=== PATIENT | male | born 1980 | race Caucasian/White ===

== ENCOUNTER 2017-06-22 05:47 | Day surgery (SDC) | payer BC, OTHER ==
[~2017-06-22] VITALS: Ht 185.4 cm; Wt 90.3 kg
--- NOTE | ~2017-06-22 | O ---
[address] [address] OPERATIVE REPORT Name: BETTY JENSEN Amy Room #: DEP [facility].#: [id number] Admission: 06/22/17 Attend Phys: Tomas Quezada MD Discharge: 06/22/17 Date of : 76 Report #: [id number] THIS REPORT FOR: //name// CC: Mike Quezada DATE OF SERVICE: 06/22/2017 SERVICE: Orthopedics. FACILITY: [facility] SURGEON: Tomas Quezada M.D. SHIP WASHER: None. PREOPERATIVE DIAGNOSES: 1. Right hip pain. 2. Right hip femoroacetabular impingement. 3. Right hip labral tear. 4. Right hip chondromalacia of the acetabulum. 5. Right hip subspine, extraarticular impingement. POSTOPERATIVE DIAGNOSES: 1. Right hip pain. 2. Right hip femoroacetabular impingement. 3. Right hip labral tear. 4. Right hip chondromalacia of the acetabulum. 5. Right hip subspine, extraarticular impingement. PROCEDURES: 1. Right hip arthroscopic subspinous acetabuloplasty. 2. Right hip arthroscopic labral repair. 3. Right hip arthroscopic Cam osteochondroplasty. 4. Right hip arthroscopic acetabular chondroplasty. COMPLICATIONS: None. DRAINS: None. SPECIMENS: None. ANESTHESIA TYPE: General endotracheal with single shot regional nerve block. ESTIMATED BLOOD LOSS: [address] [address] OPERATIVE REPORT Name: BETTY JENSEN Room #: DEP [facility]#: [id number] Admission: 06/22/17 Attend Phys: Tomas Quezada MD Discharge: 06/22/17 Date of : 76 Report #: [id number] TRACTION TIME: 60 minutes. FINDINGS: 1. Detached anterior superior labral tear repaired with [place] NanoTack suture times 3. 2. 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 3. Cam osteoplasty resected with fluoroscopic and arthroscopic visualization on multiple planes. 4. Capsule repair with #2 Vicryl times 2. HISTORY AND INDICATIONS: The patient is a 36-year-old active gentleman who has been having several years of persistent right hip pain associated with activity. He has had to stop most of his recreational fitness activities and it was leading to weight gain and diminished overall health. He has stopped running during the period, which I have been treating him. He has been seeing our practice since early 2015 and has pursed physical therapy, intra-articular injections, oral medications, activity modifications, rest and other modalities without sufficient relief. 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 Risks, benefits, alternatives and indications for surgery were discussed with him in detail. Risks include but not limited to pain, bleeding, infection, injury to nerves or blood vessels, persistent pain despite surgical intervention, failure of any repairs, reconstruction, progression of any preexisting chondral injury, stiffness and need for further surgery including revision as well as complications related to anesthesia such as stroke, heart attack, pulmonary complications, thromboembolic disease and . Despite these risks, he wished to proceed. PROCEDURE IN DETAIL: After right lower extremity was correctly identified in preoperative holding area as the operative extremity, the patient underwent placement of a single shot regional nerve block by anesthesia. He was then taken to the operating room and placed supine on operating table and general endotracheal anesthesia was induced without complication. He was padded appropriately. Prophylactic antibiotics were administered at appropriate time. Traction boots were applied on bilateral lower extremities and we mapped down to femoral head and neck junction where we identified a Cam deformity with a maximal alpha angle of 65 degrees located at the position of approximately 30-75 degrees on the rotational profile. The right lower extremity was then prepped and draped in standard sterile fashion. Time-out procedure was performed. Traction was applied to the right leg. Total traction time was 60 minutes. A standard anterolateral viewing portal followed by mid anterior working portal was established and then transverse capsulotomy was performed. There was extensive amount of capsular synovitis and bruising present. There was also fraying of the acetabular cartilage at the chondral labral rim consistent with Cam pathology. There was detachment of the acetabular labrum as well anterior [facility] [address] [place] [address] OPERATIVE REPORT Name: BETTY JENSEN Room #: DEP [facility] [place] Reena#: [id number] Admission: 06/22/17 Attend Phys: Tomas Quezada MD Discharge: 06/22/17 Date of : 76 Report #: [id number] superiorly, and there was a small extraarticular subspine acetabular lesion causing extraarticular impingement. The shaver was used to reflect the capsule off the dorsal side of the labrum to allow access to the subspine region, which was recessed with the omar completing the subspine recession. The omar was then used to abrade the acetabular rim to create a bleeding surface. However, his acetabular anteversion and anterior coverage necessitates that no bone be removed off the acetabular rim anteriorly. Therefore, it was simply to abrade the soft tissues and generate a fresh bony surface for healing. The distal anterolateral accessory portal was established and then the repair was performed with a total of 3 TougalooCourtanetack suture anchors with labral tape passed in a mattress suture fashion to create an anatomic repair. At this point, this allowed access to the chondrolabral junction where the shaver was used to trim the frayed acetabular cartilage at that junction. The labrum was now stable to probing and after chondroplasty, the cartilage was stable as well. There were no full thickness lesions. Traction was let down. Attention was turned towards the Cam. The hip was flexed and a Cam osteoplasty was performed under fluoroscopic guidance. The instruments were removed from the hip. X-rays were taken, identifying additional area more distal on the neck that needed further working, then placed the scope back into the hip and completed the Cam osteoplasty. The bony debris was lavaged out of the hip and then the capsule was closed with a total of two #2 Vicryl sutures without difficulty. The wounds were then closed with a deep followed by superficial Monocryl. Sterile dressing was applied. The patient was awakened from anesthesia and taken to recovery room in stable condition. There were no complications and all counts were recorded as correct. <ELECTRONICALLY SIGNED> By: Tomas Quezada MD 06/23/17 0722 [id number] Tomas Quezada MD /nt
[~2017-06-22 05:47] MED LIST: DEXILANT60 MG PO; SYNTHROID100 MCG PO
[2017-06-22 06:30] VITALS: BP 137/83
[2017-06-22 10:45] VITALS: BP 137/83
== END 2017-06-22 11:42 | disposition home or self-care (01) ==
LOC: EDBD → OR 05:47 → TBA 05:47 → OR 08:29
DX: S73.191A Other sprain of right hip, initial encounter (principal); M25.851 Other specified joint disorders, right hip; M94.251 Chondromalacia, right hip; J45.909 Unspecified asthma, uncomplicated; K21.9 Gastro-esophageal reflux disease without esophagitis; E03.9 Hypothyroidism, unspecified; Z98.890 Other specified postprocedural states; Z88.8 Allergy status to other drugs, medicaments and biological substances; X58.XXXA Exposure to other specified factors, initial encounter; Y93.89 Activity, other specified; Y92.89 Other specified places as the place of occurrence of the external cause; Y99.8 Other external cause status
CPT/HCPCS: 47405; 50010; 50101; 50386; 50612; 51467; 51538; 52298; 52304; 55430; 56524; 56527; 57092; 62110; 62900; 64042; 64043; 70005